=== PATIENT | female | born 1955 | race Asian ===

== ENCOUNTER 2018-07-24 08:53 | Day surgery (SDC) | payer OTHER ==
[~2018-07-24 08:53] MED LIST: DEXAMETHASONE 4 MG/ML 1 ML INJ; FENTAnyl 50 MCG/ML VIAL; GLYCOPYRROLATE 0.4 MG INJ; LIDOCAINE 2% (SDV) 5 ML INJ; MIDAZOLAM 1 MG/ML 2 ML INJ; NEOSTIGMINE 3 MG/3 ML SYRINGE; ONDANSETRON 4 MG INJ; PROPOFOL 20 ML; ROCURONIUM 50 MG INJ
[2018-07-24] MEDS ORDERED: LABETALOL HCL 20MG INJ (13:17)
[2018-07-24] MEDS ORDERED: ROPIVACAINE 0.5 % 30 ML VIAL (13:45)
[2018-07-24] MEDS ORDERED: SOD CHLORIDE 0.9% 1,000 ML IV (14:51)
[2018-07-24] MEDS ORDERED: morphine 2 MG INJ IV (15:00)
[2018-07-24] MEDS ORDERED: OXYCODONE/ACETAMINOPHEN (5/325) TAB PO ×3 (15:00→15:30)
[2018-07-24] MEDS ORDERED: ONDANSETRON 4 MG INJ IV (15:00)
[2018-07-24] MEDS: MEPERIDINE 25 MG INJ IV (15:27)
[2018-07-24] MEDS: HYDROmorphONE 1 MG/5 ML IV SYRINGE IV (15:30)
[2018-07-24] MEDS ORDERED: hydrALAzine 20 MG INJ IV (15:30)
[2018-07-24] MEDS ORDERED: LABETALOL HCL 20MG INJ IV (15:30)
[2018-07-24] MEDS ORDERED: FENTAnyl 50 MCG/ML VIAL IV ×3 (15:30)
[2018-07-24] MEDS ORDERED: EPHEDrine SULFATE 50 MG/5 ML SYG IV (15:30)
[2018-07-24] MEDS ORDERED: HYDROmorphONE 1 MG/5 ML IV SYRINGE IV ×2 (15:30)
[2018-07-24] MEDS: ONDANSETRON 4 MG INJ IV (15:31)
[2018-07-24] MEDS: OXYCODONE/ACETAMINOPHEN (5/325) TAB PO (15:43)
== END 2018-07-24 17:22 | disposition home or self-care (01) ==
LOC: SUR 08:53 → SDS 08:53 → SUR 17:22
DX: S83.271D Complex tear of lateral meniscus, current injury, right knee, subsequent encounter (principal); X58.XXXD Exposure to other specified factors, subsequent encounter; S83.241D Other tear of medial meniscus, current injury, right knee, subsequent encounter; M23.000 Cystic meniscus, unspecified lateral meniscus, right knee; M94.261 Chondromalacia, right knee; I10 Essential (primary) hypertension
CPT/HCPCS: 29880; 71045